=== PATIENT | male | born 1970 | race Caucasian/White ===

== ENCOUNTER 2022-03-31 15:58 | Inpatient (IN) | payer OTHER ==
[2022-03-31 17:16] VITALS: BMI 21.7
[2022-03-31] MEDS ORDERED: MAGNESIUM CITRATE 300 ML BOTTLE PO PRN (17:43)
[2022-03-31] MEDS ORDERED: BENZOCAINE/MENTHOL (CHLORASEPTIC ) LOZENGE MM PRN (17:43)
[2022-03-31] MEDS ORDERED: P-EPHED 60MG/TRIPROLIDI 2.5MG TABLET PO PRN (17:43)
[2022-03-31] MEDS ORDERED: MAG HYDROX/AL HYDROX/SIMETH 30 ML UNIT-DOSE CUP PO PRN (17:43)
[2022-03-31] MEDS ORDERED: MAGNESIUM HYDROX 2400MG/30ML ORAL SUSPENSION 30 ML CUP PO PRN (17:43)
[2022-03-31] MEDS ORDERED: BISMUTH SUBSALICYLATE 524 MG/30 ML PO PRN (17:43)
[2022-03-31] MEDS ORDERED: guaiFENesin 200 MG/10 ML 10 ML UNIT-DOSE CUPS PO PRN (17:43)
[2022-03-31] MEDS ORDERED: DICYCLOMINE HCL 10 MG CAPSULE PO PRN (17:43)
[2022-03-31] MEDS ORDERED: IBUPROFEN 400 MG TABLET (FP) PO PRN (17:43)
[2022-03-31] MEDS ORDERED: LOPERAMIDE HCL 2 MG CAPSULE PO PRN (17:43)
[2022-03-31] MEDS ORDERED: ACETAMINOPHEN 325 MG TABLET (FP) PO PRN ×2 (17:43)
[2022-03-31] MEDS ORDERED: IBUPROFEN 600 MG TABLET (FP) PO PRN (17:43)
[2022-03-31] MEDS ORDERED: ONDANSETRON *ODT* 4 MG TABLET SL PRN (17:43)
[2022-04-01] MEDS: METHOCARBAMOL 500 MG TABLET PO PRN ×2 (00:09→09:59)
[2022-04-01] MEDS: MELATONIN 5 MG TABLETS PO PRN (00:09)
[2022-04-01] MEDS: THIAMINE HCL 100 MG TABLET (FP) PO SCH ×2 (00:09→22:42)
[2022-04-01] MEDS: hydrOXYzine PAMOATE 25 MG CAPSULE (FP) PO PRN ×3 (05:38→17:51)
[2022-04-01] MEDS ORDERED: cloNIDine HCL 0.1 MG TABLET PO PRN (09:22)
[2022-04-01] MEDS ORDERED: methaDONE HCL 10 MG TABLET (FOR DETOX USE ONLY) PO ONE (10:00)
[2022-04-01] MEDS: PRENATAL VITAMINS W/ FOLIC ACID TABLET (FP) PO SCH (10:02)
[2022-04-01 10:22] LABS: HEMOGLOBIN 12.6 GM/dL (11.7-16.9); MCH 29.7 pg (25.7-33.7); MEAN CELL VOLUME 87.4 fl (80-96); PLATELET COUNT 201 10^3/uL (134-434); RBC 4.23 M/mm3 (4.00-5.60); WHITE BLOOD COUNT 3.5 K/mm3 (4.0-10.0)
[2022-04-01 10:44] LABS: CALCIUM 8.7 mg/dL (8.5-10.1)
[2022-04-01 10:45] LABS: ALBUMIN 3.4 g/dl (3.4-5.0); BLOOD UREA NITROGEN 13.9 mg/dL (7-18)
[2022-04-01 10:48] LABS: CREATININE 1.1 mg/dL (0.55-1.3)
[2022-04-01 10:49] LABS: BILIRUBIN,TOTAL 1.1 mg/dL (0.2-1); TOT PROT 6.7 g/dl (6.4-8.2)
[2022-04-01] MEDS: diazePAM 5 MG TABLET PO PRN (17:47)
[2022-04-02] MEDS ORDERED: methaDONE HCL 10 MG TABLET (FOR DETOX USE ONLY) ONE (08:47)
[2022-04-02] MEDS: PRENATAL VITAMINS W/ FOLIC ACID TABLET (FP) PO SCH (10:15)
[2022-04-02] MEDS: THIAMINE HCL 100 MG TABLET (FP) PO SCH (22:51)
[2022-04-03] MEDS ORDERED: methaDONE HCL 10 MG TABLET (FOR DETOX USE ONLY) PO ONE (10:00)
[2022-04-03] MEDS: diazePAM 5 MG TABLET PO PRN ×2 (10:05→22:23)
[2022-04-03] MEDS: METHOCARBAMOL 500 MG TABLET PO PRN (10:06)
[2022-04-03] MEDS: PRENATAL VITAMINS W/ FOLIC ACID TABLET (FP) PO SCH (10:06)
[2022-04-03] MEDS ORDERED: DOCUSATE SODIUM 100 MG CAPSULE (FP) PO ONE (11:23)
[2022-04-03] MEDS: MELATONIN 5 MG TABLETS PO PRN (22:23)
[2022-04-03] MEDS: THIAMINE HCL 100 MG TABLET (FP) PO SCH (22:23)
[2022-04-04] MEDS ORDERED: methaDONE HCL 10 MG TABLET (FOR DETOX USE ONLY) ONE (09:15)
[2022-04-04] MEDS: PRENATAL VITAMINS W/ FOLIC ACID TABLET (FP) PO SCH (10:06)
[2022-04-04] MEDS: THIAMINE HCL 100 MG TABLET (FP) PO SCH (22:23)
[2022-04-05] MEDS ORDERED: methaDONE HCL 10 MG TABLET (FOR DETOX USE ONLY) PO ONE (10:00)
[2022-04-05] MEDS: PRENATAL VITAMINS W/ FOLIC ACID TABLET (FP) PO SCH (10:13)
[2022-04-06] MEDS: THIAMINE HCL 100 MG TABLET (FP) PO SCH (00:16)
[2022-04-06 09:08] VITALS: BP 108/76; PULSE 71; TEMP 97.3
[2022-04-06] MEDS: PRENATAL VITAMINS W/ FOLIC ACID TABLET (FP) PO SCH (09:51)
== END 2022-04-06 10:04 | disposition home or self-care (01) | DRG 773 ==
LOC: YASAS 15:58 → UNDOADMIN 21:23 → Y6N 21:23 → UNDOADMIN 23:12 → Y3N 23:12
PROVIDERS: ADMIT Allergy & Immunology; ATTEND Surgery
PROC: HZ2ZZZZ Detoxification Services for Substance Abuse Treatment (ICD-10-PCS; principal; 2022-03-31)
DX: F11.23 Opioid dependence with withdrawal (principal); F14.20 Cocaine dependence, uncomplicated; F10.20 Alcohol dependence, uncomplicated; F17.210 Nicotine dependence, cigarettes, uncomplicated; Z28.310 Unvaccinated for COVID-19
CPT/HCPCS: 36415; 80053; 85027; 86780; C9803-CS; U0003; U0005